=== PATIENT | male | born 1995 | race Caucasian/White ===

== ENCOUNTER 2024-05-12 16:15 | Inpatient (IN) | payer SELFPAY ==
[~2024-05-12 16:15] MED LIST: Iopamidol 370 76% 100 ML VIAL ONE
[2024-05-12] MEDS ORDERED: Ipratropium/Albuterol 3 ML NEB ONE ×2 (16:58→17:44)
[2024-05-12 17:24] LABS: #Basophils 0.04 10x3/uL (0.0-0.2); #Eosinphils 0.04 10x3/uL (0.0-0.5); #Monocytes 0.94 10x3/uL (0.0-1.1); #Neutrophils 7.04 10x3/uL (1.5-8.4); %Basophils 0.4 % (0.0-2.0); %Eosinophils 0.4 % (0.0-6.0); %Lymphocytes 10.2 % (18.0-47.0); %Monocytes 10.4 % (0.0-10.0); Hematocrit 41.9 % (38.8-50.0); Hemoglobin 15.4 g/dL (13.5-17.5); Mean Corpuscular HGB CONC 36.8 g/dL (32.0-36.0); Mean Corpuscular Hemoglobin 30.9 pg (27.0-33.0); Mean Corpuscular Volume 84.1 fL (81.2-95.1); Platelet Count 208 10x3/uL (150-450); RBC Distribution Width 11.9 % (11.5-14.5); Red Blood Cell (RBC) Count 4.98 10x6/uL (4.32-5.72)
[2024-05-12] MEDS ORDERED: Ketorolac Tromethamine 30 MG (1 mL) VIAL ONE (17:28)
[2024-05-12] MEDS ORDERED: cefTRIAXone (ROCEPHIN) 2 GM VIAL ONE (17:29)
[2024-05-12] MEDS ORDERED: Azithromycin 500 MG VIAL ONE ×2 (17:29→17:36)
[2024-05-12 17:37] LABS: ALT (SGPT) 70 U/L (8-55); AST (SGOT) 52 U/L (5-34); Albumin 3.5 g/dL (3.5-5.0); Alkaline Phosphatase 93 U/L (40-110); Anion Gap 16 mmol/L (10-20); BUN (Urea Nitrogen) 9 mg/dL (8.9-20.6); Calc. Creatinine Clearance 0 mL/min (70-130); Calcium 8.5 mg/dL (7.8-10.44); Carbon Dioxide 27 mmol/L (22-29); Chloride 98 mmol/L (98-107); Estimated GFR 110; Globulin 3.1 g/dL (2.4-3.5); Glucose 119 mg/dL (70-105); Potassium 3.6 mmol/L (3.5-5.1); Protein, Total 6.6 g/dL (6.0-8.3); Sodium 137 mmol/L (136-145)
[2024-05-12] MEDS ORDERED: predniSONE 20 MG TAB ONE (17:40)
[2024-05-12] MEDS ORDERED: Magnesium 2 GM/50 ML BAG (IN WATER) ONE (17:40)
[2024-05-12 17:41] LABS: Troponin I Less than 0.010 ng/mL (< 0.028)
[2024-05-12 17:46] LABS: SARS-CoV-2 E Target Negative; SARS-CoV-2 N2 Target Negative; SARS-CoV-2 NAA Rapid Test Not Detected (NotDetected); SARS-CoV-2 RdRP gene Negative
[2024-05-12] MEDS ORDERED: Acetaminophen 325 MG TAB PO PRN (20:18)
[2024-05-12 21:01] VITALS: BMI 47.5
[2024-05-12] MEDS: Sodium Chloride 0.9% 1,000 ML IV SCH (21:43)
[2024-05-12] MEDS: Guaifenesin DM 100-10/5 ML UDCUP PO PRN (21:43)
[2024-05-12 21:52] LABS: Strep pneumo Urine Ag NEGATIVE (NEGATIVE)
[2024-05-12 21:53] LABS: Legionella Urinary Ag Negative (Negative)
[2024-05-12] MEDS ORDERED: Potassium Chloride 20 MEQ TAB ONE (23:00)
[2024-05-12] MEDS: Potassium Chloride 20 MEQ TAB PO SCH (23:09)
[2024-05-13] MEDS ORDERED: Albuterol 2.5 MG (3 mL) NEB ONE (03:05)
[2024-05-13] MEDS: Albuterol 2.5 MG (3 mL) NEB NEB PRN (03:05)
[2024-05-13 03:41] LABS: #Monocytes 0.25 10x3/uL (0.0-1.1); #Neutrophils 5.18 10x3/uL (1.5-8.4); %Lymphocytes 10.2 % (18.0-47.0); %Monocytes 4.1 % (0.0-10.0); Hematocrit 41.1 % (38.8-50.0); Hemoglobin 14.3 g/dL (13.5-17.5); Mean Corpuscular HGB CONC 34.8 g/dL (32.0-36.0); Mean Corpuscular Hemoglobin 30.2 pg (27.0-33.0); Mean Corpuscular Volume 86.9 fL (81.2-95.1); Mean Platelet Volume 9.9 fL (7.4-10.4); Platelet Count 198 10x3/uL (150-450); RBC Distribution Width 12.2 % (11.5-14.5); Red Blood Cell (RBC) Count 4.73 10x6/uL (4.32-5.72); White Blood Cell (WBC) Count 6.1 10x3/uL (3.5-10.5)
[2024-05-13 03:52] LABS: Anion Gap 17 mmol/L (10-20); BUN (Urea Nitrogen) 8 mg/dL (8.9-20.6); Calc. Creatinine Clearance 122 mL/min (70-130); Calcium 8.6 mg/dL (7.8-10.44); Carbon Dioxide 24 mmol/L (22-29); Chloride 104 mmol/L (98-107); Estimated GFR 117; Glucose 192 mg/dL (70-105); Potassium 4.2 mmol/L (3.5-5.1); Sodium 141 mmol/L (136-145)
[2024-05-13] MEDS ORDERED: Dextrose 50% Abboject 50 ML SYRINGE SLOW IVP PRN (04:34)
[2024-05-13] MEDS ORDERED: Glucagon 1 MG/ML KIT IM PRN (04:34)
[2024-05-13] MEDS ORDERED: Dextrose 5% in Water 1,000 ML IV PRN (04:34)
[2024-05-13] MEDS: Ipratropium/Albuterol 3 ML NEB NEB SCH (04:50)
[2024-05-13] MEDS ORDERED: methylPREDNISolone Sod Succ 40 MG VIAL ONE (04:53)
[2024-05-13] MEDS ORDERED: Ipratropium/Albuterol 3 ML NEB ONE (04:54)
[2024-05-13] MEDS: methylPREDNISolone Sod Succ 40 MG VIAL IVP SCH (04:59)
[2024-05-13] MEDS: Enoxaparin 40 MG (0.4 mL) SYRINGE SC SCH (09:30)
[2024-05-13] MEDS ORDERED: Enoxaparin 40 MG (0.4 mL) SYRINGE ONE (09:30)
[2024-05-13] MEDS: HumaLOG 300 UNITS/3 ML VIAL SC PRN (11:55)
[2024-05-13] MEDS ORDERED: Insulin Regular 300 UNITS/3 ML VIAL ONE (11:58)
[2024-05-13] MEDS: cefTRIAXone\\ROCEPHIN 2 GM in Sodium Chloride 0.9% 100 ML IVPB SCH (18:20)
[2024-05-13] MEDS: Azithromycin 500 MG in Sodium Chloride 0.9% 250 ML 250 ML IVPB SCH (18:21)
[2024-05-14] MEDS: Ipratropium/Albuterol 3 ML NEB NEB PRN (04:20)
[2024-05-14 05:44] LABS: #Basophils 0.02 10x3/uL (0.0-0.2); #Monocytes 0.56 10x3/uL (0.0-1.1); #Neutrophils 8.73 10x3/uL (1.5-8.4); %Basophils 0.2 % (0.0-2.0); %Lymphocytes 13.8 % (18.0-47.0); %Monocytes 5.1 % (0.0-10.0); %Neutrophils 80.1 % (40.0-75.0); Hematocrit 44.2 % (38.8-50.0); Hemoglobin 15.3 g/dL (13.5-17.5); Mean Corpuscular HGB CONC 34.6 g/dL (32.0-36.0); Mean Corpuscular Hemoglobin 30.5 pg (27.0-33.0); Mean Platelet Volume 10.2 fL (7.4-10.4); Platelet Count 277 10x3/uL (150-450); RBC Distribution Width 12.3 % (11.5-14.5); Red Blood Cell (RBC) Count 5.02 10x6/uL (4.32-5.72); White Blood Cell (WBC) Count 10.9 10x3/uL (3.5-10.5)
[2024-05-14 06:00] LABS: ALT (SGPT) 185 U/L (8-55); AST (SGOT) 111 U/L (5-34); Albumin 3.1 g/dL (3.5-5.0); Alkaline Phosphatase 87 U/L (40-110); Anion Gap 17 mmol/L (10-20); BUN (Urea Nitrogen) 13 mg/dL (8.9-20.6); Bilirubin, Total 0.5 mg/dL (0.2-1.2); Calc. Creatinine Clearance 294 mL/min (70-130); Calcium 9.1 mg/dL (7.8-10.44); Carbon Dioxide 22 mmol/L (22-29); Chloride 108 mmol/L (98-107); Estimated GFR 120; Globulin 3.7 g/dL (2.4-3.5); Glucose 163 mg/dL (70-105); Potassium 4.4 mmol/L (3.5-5.1); Protein, Total 6.8 g/dL (6.0-8.3); Sodium 143 mmol/L (136-145)
[2024-05-15] MEDS: cefTRIAXone\\ROCEPHIN 2 GM in Sodium Chloride 0.9% 100 ML IVPB SCH (12:19)
[2024-05-15] MEDS: methylPREDNISolone Sod Succ 40 MG VIAL IVP SCH (12:19)
[2024-05-15] MEDS: Azithromycin 500 MG in Sodium Chloride 0.9% 250 ML 250 ML IVPB SCH (12:59)
[2024-05-15 13:06] VITALS: BP 147/91; TEMP 98.2
== END 2024-05-15 15:25 | disposition home or self-care (01) | DRG 871 ==
LOC: CSHERS 16:15 → CSHERHOLD 19:30 → CSHTELE 05-13 12:42
PROVIDERS: ADMIT Student in an Organized Health Care Education/Training Program; ATTEND Family Medicine
DX: A41.9 Sepsis, unspecified organism (principal); J18.9 Pneumonia, unspecified organism; J96.01 Acute respiratory failure with hypoxia; Z68.42 Body mass index [BMI] 45.0-49.9, adult; E66.01 Morbid (severe) obesity due to excess calories; Z79.4 Long term (current) use of insulin; Z79.899 Other long term (current) drug therapy; R74.01 Elevation of levels of liver transaminase levels
CPT/HCPCS: 36415; 36416; 71045; 71275; 80048; 80053; 83605; 83735; 83880; 84145; 84484; 85025; 85379; 87040; 87070; 87205; 87449; 87633; 87804; 87807; 87899; 93005; 94640; 94760; 94762; 96374; 96375; J0456; J0696; J1650; J1815; J1885; J2920; J3475; J3490; J7050; J7512; J7611; J7620; Q9967; U0002

== ENCOUNTER 2024-12-29 09:36 | Outpatient (CLI) | payer OTHER ==
[2024-12-29 11:13] LABS: #Basophils 0.03 10x3/uL (0.0-0.2); #Eosinophils 0.07 10x3/uL (0.0-0.5); #Monocytes 0.42 10x3/uL (0.0-1.1); #Neutrophils 3.42 10x3/uL (1.5-8.4); %Basophils 0.6 % (0.0-2.0); %Eosinophils 1.3 % (0.0-6.0); %Lymphocytes 27.4 % (18.0-47.0); %Monocytes 7.7 % (0.0-10.0); %Neutrophils 62.8 % (40.0-75.0); Hematocrit 46.2 % (38.8-50.0); Hemoglobin 16.3 g/dL (13.5-17.5); Mean Corpuscular HGB CONC 35.3 g/dL (32.0-36.0); Mean Corpuscular Hemoglobin 29.9 pg (27.0-33.0); Mean Corpuscular Volume 84.6 fL (81.2-95.1); Mean Platelet Volume 9.6 fL (7.4-10.4); Platelet Count 241 10x3/uL (150-450); RBC Distribution Width 12.5 % (11.5-14.5); Red Blood Cell (RBC) Count 5.46 10x6/uL (4.32-5.72); White Blood Cell (WBC) Count 5.44 10x3/uL (3.5-10.5)
[2024-12-29 11:24] LABS: Anion Gap 11 mmol/L (10-20); BUN (Urea Nitrogen) 16 mg/dL (8.9-20.6); Calc. Creatinine Clearance 0 mL/min (70-130); Calcium 9.1 mg/dL (7.8-10.44); Carbon Dioxide 26 mmol/L (22-29); Chloride 109 mmol/L (98-107); Estimated GFR 117; Glucose 111 mg/dL (70-105); Potassium 4.2 mmol/L (3.5-5.1); Sodium 142 mmol/L (136-145)
== END 2024-12-29 09:37 | disposition home or self-care (01) ==
LOC: CSHLAB 09:36
PROVIDERS: ATTEND Surgery
DX: Z01.818 Encounter for other preprocedural examination (principal); K40.90 Unilateral inguinal hernia, without obstruction or gangrene, not specified as recurrent
CPT/HCPCS: 80048; 85025; 93005; 93010